=== PATIENT | male | born 1985 | race Caucasian/White ===

== ENCOUNTER 2019-12-24 01:08 | Inpatient (IN) | payer OTHER ==
[~2019-12-24] VITALS: Ht 172.7 cm; Wt 82.5 kg
[2019-12-24] MEDS ORDERED: METO1TAB87 PO (01:17)
[2019-12-24] MEDS ORDERED: MULTIVITAMIN -ADULT INJECTION 10 ML, THIAMINE INJection 100 MG, FOLIC ACID 1 MG in NS 1... IV ONE (01:45)
[2019-12-24] MEDS ORDERED: NS 1,000 ML IV ONE ×2 (01:45→07:30)
[2019-12-24 01:58] LABS: BASO # 0.1 10^3/uL (0.0-0.2); BASO % 0.6 % (0.0-1.0); EOS # 0.1 10^3/uL (0.0-0.5); EOS % 1.1 % (0.0-3.0); HEMATOCRIT 44.1 % (42.0-52.0); HEMOGLOBIN 15.8 g/dl (13.5-17.5); LYMPH # 3.1 10^3/uL (1.5-5.0); LYMPH % 31.6 % (24.0-44.0); MEAN CORPUSCULAR HEMOGLOBIN 30.5 pg (27.0-33.0); MEAN CORPUSCULAR HGB CONC 35.8 g/dl (32.0-36.5); MEAN CORPUSCULAR VOLUME 85.1 fl (80.0-96.0); MONO # 0.9 10^3/uL (0.0-0.8); MONO % 9.5 % (0.0-5.0); NEUTROPHILS # 5.6 10^3/uL (1.5-8.5); NEUTROPHILS % 56.9 % (36.0-66.0); PLATELET COUNT, AUTOMATED 292 10^3/uL (150-450); RED BLOOD COUNT 5.18 10^6/uL (4.30-6.10); WHITE BLOOD COUNT 9.9 10^3/uL (4.0-10.0)
[2019-12-24] MEDS ORDERED: FLECAINIDE 50MG TABLET PO ONE (02:15)
[2019-12-24] MEDS ORDERED: METOPROLOL TART 25 MG TABLET PO ONE (02:15)
[2019-12-24] MEDS ORDERED: METOPROLOL 5 MG/5 ML VIAL IV STA ×3 (02:27→03:03)
[2019-12-24 02:38] LABS: BLOOD UREA NITROGEN 17 MG/DL (7-18); CARBON DIOXIDE LEVEL 24 MEQ/L (21-32); CHLORIDE LEVEL 108 MEQ/L (98-107); CK-MB VALUE MASS 1.5 NG/ML (<3.6); CPK CREATINE PHOSPHOKINASE 187 U/L (39-308); CREATININE FOR GFR 1.04 MG/DL (0.70-1.30); ETHYL ALCOHOL (ETHANOL) 0.187 % (0.000-0.010); FREE THYROXINE INDEX 3.8 % (1.4-3.8); GLOMERULAR FILTRATION RATE > 60.0 (>60); GLUCOSE, FASTING 88 MG/DL (70-100); POTASSIUM SERUM 3.6 MEQ/L (3.5-5.1); SODIUM LEVEL 139 MEQ/L (136-145); T UPTAKE 36 % (33-40); THYROXINE (T4) 10.5 UG/DL (4.5-12.0); TROPONIN I < 0.02 NG/ML (< 0.10)
[2019-12-24] MEDS ORDERED: METOPROLOL TART 50 MG TAB PO ONE (02:45)
[2019-12-24] MEDS ORDERED: AMIODARONE 200 MG TAB (PACERONE) PO ONE (03:30)
[2019-12-24] MEDS ORDERED: AMIODARONE HCL 150 MG in IV 1 EA IV STA (04:50)
--- NOTE | 2019-12-24 05:12 | HPEPDOC ---
[facility] Medical History & Physical Date of Admission Dec 24, 2019 Date of Service: Dec 24, 2019 Other Provider [facility] Attending Physician: PATRICIO ARDON MD History and Physical TIME OF SERVICE: 530AM CHIEF COMPLAINT: palpitations HISTORY OF PRESENT ILLNESS: This is a 34 yr old male who came in this morning for evaluation of palpitations. He has a hx of palpitations (a fib) when he drinks; he denies being ever having an Echo. He admits to binge drinking lately because of boredom and stress related to the COVID pandemic; he can't quantify how much he drank. He denied having chest pain, dyspnea, runny nose, cough or cold or any sick contacts. He has a cut on his forehead which occurred as a result of his roommate accidentally hitting him with a medicine ball while they were exercising. Per d/w his alcohol level elevated, EKG confirmed rapid afib which resolved after metoprolol tartrate 50mg x1, metoprolol tartrate 5mg IV x2, amiodarone 600mg PO and amiodarone 150mg IV x1. 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 HOME MEDICATIONS: Please see below. PHYSICAL EXAMINATION: Vital Signs Date Time Temp Pulse Resp B/P (MAP) Pulse Ox O2 Delivery O2 Flow Rate FiO2 12/24/19 01:08 98.2 102 18 129/81 (97) 96 Room Air GEN: well-nourished / well developed/ slightly anxious INTEGUMENT: He has an abrasion on his forehead HEENT: NCAT / lips acyanotic /mucus membranes moist and pink CVS: HR irregularly irregular & 89 at time of exam /NMRG/ no JVP / radial and dorsalis pedis pulses intact / no lower extremity edema LUNGS: lungs are clear to auscultation bilaterally on room air ABDOMEN: Contour (flat) / there are no masses or lesions MSK/EXTREMITIES: range of motion intact in all 4 extremities NEURO: CN 2-12 are grossly intact / speech is not dysarthric PSYCH: alert and oriented to person place and time/ able to understand and follow all commands LABORATORY DATA: Anion Gap 7L, Glomerular Filtration Rate > 60.0, Calcium Level 9.0, Total Creatine Kinase 187, Creatine Kinase MB 1.5, Creatine Kinase MB Relative Index 0.80, Troponin I < 0.02, Thyroid Stimulating Hormone (TSH) 2.630, Free Thyroxine Index 3.8, Thyroxine (T4) 10.5, Triiodothyronine (T3) Uptake 36, Ethyl Alcohol Level 0.187H ASSESSMENT: Mr. Patrick a 34-year-old with history of chronic hypertension and paroxysmal atrial fibrillation who is admitted for management of rapid A. fib likely due to binge drinking. PLAN: 1. Rapid Atrial Fibrillation likely 2/2 alcohol abuse RVR resolved after he received PO and IV metoprolol tartrate and PO and IV amiodarone His serum Trop, TSH, K, Mg, Ca++ are wnl Serum ETO elevated Pre -echo CHADS VASC2 Score to determine risk of stroke = 1 point = consider AC Plan: admit to PCU / telemetry / f/u Mag and serial trops / pending Echo to determine EF and r/o valvulopathy f/u repeat CHADSVASC2 score and decide if AC can be discontinued / rate control w metoprolol tartrate 25mg Q12H (home dose is metoprolol tartrate 25mg daily), the day time team may consider calling the [employer] 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 Alcohol Abuse - Plan: fall precautions/ seizure precautions/ ativan per CIWA protocol w MVI, thiamine and folic acid / instructed patient to abstain from alcohol 3. Chronic HTN - Plan: metoprolol tartrate 25mg Q12H 4. Abrasion on forehead- Plan: bacitracin ointment DVT Px not needed bc he is on AC for A.fib DISPO: likely home after more than 2 midnight's stay Home Medications Scheduled Metoprolol Tartrate (Metoprolol Tartrate) 25 Mg Tablet, 25 MG PO DAILY Allergies Coded Allergies: No Known Allergies (Unverified , 12/24/19) A-FIB/CHADSVASC A-FIB History Current/History of A-Fib/PAF?: Yes Current PO Anticoag Therapy: No Treatment Treatment ordered: Other Other anticoagulant ordered: PATRICIO Posey MD Dec 24, 2019 05:12
[2019-12-24] MEDS ORDERED: LORazepam 2 MG TAB PO PRN (05:15)
[2019-12-24] MEDS ORDERED: ACETAMINOPHEN TAB 650MG DOSE (2X325MG) PO PRN (05:15)
[2019-12-24] MEDS ORDERED: METOPROLOL TART 25 MG TABLET PO SCH ×2 (06:00→09:00)
[2019-12-24 06:10] VITALS: BP 127/80
[2019-12-24] MEDS: ENOXAPARIN 80 MG/0.8 ML SYRINGE (J1650) SC SCH ×2 (06:25→17:57)
[2019-12-24] MEDS ORDERED: METOPROLOL TART 25 MG TABLET PO PRN (06:45)
[2019-12-24] MEDS ORDERED: BACITRACIN OINTMENT 30GM TUBE TOP PRN (07:00)
[2019-12-24 07:05] LABS: MAGNESIUM LEVEL 1.7 MG/DL (1.8-2.4); PHOSPHORUS LEVEL 3.3 MG/DL (2.5-4.9)
[2019-12-24] MEDS: THIAMINE 100 MG TAB PO SCH ×2 (07:49→21:36)
[2019-12-24] MEDS: MULTIVITAMINS/MINERALS THERAP 1 TAB PO SCH (07:49)
[2019-12-24] MEDS: DOCUSATE SODIUM 100 MG CAP PO SCH ×2 (07:50→21:00)
[2019-12-24] MEDS: FOLIC ACID 1 MG TAB PO SCH (07:50)
[2019-12-24 08:00] VITALS: BP 140/82
[2019-12-24] MEDS ORDERED: atenoloL 50 MG TAB PO ONE (08:00)
[2019-12-24] MEDS ORDERED: AMIODARONE 150MG/3ML INJ (J0282) IVP STA (08:28)
[2019-12-24] MEDS ORDERED: MAG SULF 1GM/100ML (MAG RUN) 1 GM in IV 1 EA IV ONE (08:30)
[2019-12-24 08:33] LABS: CREATININE FOR GFR 0.97 MG/DL (0.70-1.30); GLOMERULAR FILTRATION RATE > 60.0 (>60); TROPONIN I < 0.02 NG/ML (< 0.10)
--- NOTE | 2019-12-24 08:34 | ECGEPIP ---
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
--- NOTE | 2019-12-24 08:36 | ECGEPIP ---
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
--- NOTE | 2019-12-24 08:45 | IPN ---
DATE OF SERVICE: 12/24/2019 The patient continues to complain of palpitations. Rate has been 118 to 131. Given IV amiodarone and flecainide. Currently on metoprolol. Blood pressure is maintained at 140 systolic. No cough, fever or chills overnight. No dizziness or lightheadedness. Temperature 96.5, pulse 131, respiratory rate 18, blood pressure 140/82, 98% on room air. Generally, the patient is awake, alert and oriented times three. He has an abrasion on the right forehead. Dry mucous membranes. No jugular venous distention (JVD). No thyromegaly. Lungs are clear to auscultation. No wheezing or rales. Heart: S1, S2. Irregularly irregular. Tachycardic. No murmurs, rubs or gallops noted. Abdomen: Soft. Nontender. Nondistended. Extremities: No pitting edema. Patient has multiple tattoos bilateral upper and lower extremities. LABORATORY DATA: 12/24/2019: White count 9.9, hemoglobin 15, hematocrit 44, platelet count 292. Sodium 139, potassium 3.6, chloride 108, bicarbonate 24, BUN 17, creatinine 1.04, glucose 88, calcium 9. Magnesium 1.7. Total CK 187. MB fraction 1.5. Troponin less than 0.02. TSH 2.63. ASSESSMENT AND PLAN: This is a 34-year-old male with history of hypertension for the past two years with paroxysmal atrial fibrillation when he drinks alcohol who had had an alcoholic binge because of stress from the COVID pandemic who presented with atrial fibrillation with rapid ventricular response (RVR) status post amiodarone and currently with uncontrolled rate on atenolol 100 daily. IMPRESSION: 1. Atrial fibrillation with rapid ventricular rate. The patient has had an alcoholic binge. His CHADSVASc score is 1. 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 He is currently on atenolol 100 mg daily as well as a fluid bolus of normal saline. Adjust dose accordingly for better rate control. May consider amiodarone if the blood pressure were to decrease to a mean arterial pressure less than 65. 2. Hypomagnesemia. Supplemented. 3. Hypertension on atenolol. 4. Alcohol abuse. Patient has been instructed about alcohol cessation as outpatient. Currently multivitamin, thiamine and folic acid. MTDD
[2019-12-24] MEDS ORDERED: AMIODARONE HCL 150 MG in IV 1 EA IV ONE (09:00)
[2019-12-24] MEDS: MAGNESIUM OXIDE 400 MG TAB (MAG-OX) PO SCH (09:09)
[2019-12-24] MEDS: POTASSIUM CHLORIDE 10 MEQ SR TABLET PO SCH (09:09)
[2019-12-24 12:00] VITALS: BP 121/75
[2019-12-24] MEDS ORDERED: METOPROLOL TART 50 MG TAB PO SCH (12:00)
[2019-12-24 16:00] VITALS: BP 142/94
[2019-12-24 20:00] VITALS: BP 135/78
[2019-12-24 22:00] VITALS: BP 135/78
[2019-12-25] VITALS: BP 112/63
[2019-12-25 04:00] VITALS: BP 113/64
[2019-12-25] MEDS: ENOXAPARIN 80 MG/0.8 ML SYRINGE (J1650) SC SCH (05:20)
[2019-12-25 05:59] LABS: HEMATOCRIT 51.3 % (42.0-52.0); MEAN CORPUSCULAR HEMOGLOBIN 30.2 pg (27.0-33.0); MEAN CORPUSCULAR HGB CONC 35.1 g/dl (32.0-36.5); MEAN CORPUSCULAR VOLUME 86.1 fl (80.0-96.0); PLATELET COUNT, AUTOMATED 332 10^3/uL (150-450); RED BLOOD COUNT 5.96 10^6/uL (4.30-6.10); WHITE BLOOD COUNT 8.7 10^3/uL (4.0-10.0)
[2019-12-25 06:16] LABS: BLOOD UREA NITROGEN 17 MG/DL (7-18); CALCIUM LEVEL 9.5 MG/DL (8.5-10.1); CARBON DIOXIDE LEVEL 30 MEQ/L (21-32); CHLORIDE LEVEL 104 MEQ/L (98-107); CREATININE FOR GFR 1.13 MG/DL (0.70-1.30); GLOMERULAR FILTRATION RATE > 60.0 (>60); GLUCOSE, FASTING 91 MG/DL (70-100); MAGNESIUM LEVEL 2.3 MG/DL (1.8-2.4); POTASSIUM SERUM 4.2 MEQ/L (3.5-5.1); SODIUM LEVEL 136 MEQ/L (136-145)
[2019-12-25] MEDS ORDERED: ATEN100T PO (07:17)
[2019-12-25] MEDS ORDERED: SELF1KIT MC (07:43)
[2019-12-25 08:00] VITALS: BP 121/72
[2019-12-25] MEDS: DOCUSATE SODIUM 100 MG CAP PO SCH (09:00)
[2019-12-25] MEDS ORDERED: atenoloL 50 MG TAB PO SCH (09:00)
[2019-12-25] MEDS: MAGNESIUM OXIDE 400 MG TAB (MAG-OX) PO SCH (09:50)
[2019-12-25 09:51] VITALS: BP 121/72
[2019-12-25] MEDS: MULTIVITAMINS/MINERALS THERAP 1 TAB PO SCH (09:51)
[2019-12-25] MEDS: THIAMINE 100 MG TAB PO SCH (09:51)
[2019-12-25] MEDS: FOLIC ACID 1 MG TAB PO SCH (09:51)
[2019-12-25] MEDS: POTASSIUM CHLORIDE 10 MEQ SR TABLET PO SCH (09:51)
--- NOTE | 2019-12-25 11:10 | ECHO ---
DATE OF PROCEDURE: 12/25/2019 REFERRING PHYSICIAN: Dr. Kulkarni INDICATION: Atrial fibrillation with rapid ventricular response. Height is 173 cm. Weight is 83 kg. DIMENSIONS: IVS 1.1 LV 4.9 LVPW 1.1 LA 3.2 Aorta 2.7 RV 2.5 IVC 1.2 Mitral E wave velocity 59, A-wave 38, E prime septal 10.8, E prime lateral 10.8. FINDINGS: The study is of acceptable technical quality even though visualization, especially of the left ventricle was somewhat limited. The patient is in sinus rhythm. Left ventricle is normal size and systolic function with estimated EF around 65%. Due to some limitations of the imaging, small wall motion abnormalities could have been missed but they seem unlikely. Right ventricle appears normal size and systolic function. Both atria appear normal. All four valves were reasonably well seen and appear normal. No pericardial effusion is noted. Inferior vena cava is normal size. Aortic root, aortic arch and visualized segment of abdominal aorta all appear normal. Doppler interrogation reveals no significant aortic disease. There is trace mitral and tricuspid insufficiency. Mitral inflow pattern and tissue Doppler imaging of mitral annulus reveal normal diastolic function. CONCLUSIONS: 1. Study is of acceptable technical quality, the patient is in sinus rhythm. 2. Normal LV size, systolic and diastolic function. 3. No significant valvular disease. 4. Normal central venous pressure. 5. Essentially normal echocardiogram. COMMENTS: SBE prophylaxis is not recommended. MTDD
--- NOTE | 2019-12-25 20:54 | DSES ---
DATE OF ADMISSION: 12/24/2019 DATE OF DISCHARGE: 12/25/2019 PRIMARY DISCHARGE DIAGNOSES: 1. Paroxysmal atrial fibrillation with rapid ventricular rate. 2. Hypertension. 3. Alcohol abuse with alcohol binges. 4. Overweight. DISCHARGE MEDICATIONS: - atenolol 100 mg daily DISCHARGE INSTRUCTIONS: The patient is to followup with primary care provider within 5 days of hospital discharge to check his blood pressure and prior to taking atenolol and to hold atenolol for heart rate less than 60 or systolic pressure less than 110 mmHg. Primary care physician is to defer to golf club manager to decide whether the patient is a candidate for cardiac ablation for chronic atrial fibrillation due to risk of internal bleeding, the patient was not placed on oral anticoagulation at this time. 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 HOSPITAL COURSE: This is a 34-year-old male with a history of hypertension for the past 2 years, previously diagnosed with paroxysmal atrial fibrillation and on chronic metoprolol at home. He was in his usual state of health until an alcohol binge because of stress from COVID pandemic and presented with atrial fibrillation with rapid ventricular response, rate of 160 to 130. The patient was given metoprolol intravenously and orally with no improvement and was subsequently given flecainide and amiodarone by the emergency room. He was admitted to the hospitalist service, placed in progressive care unit (PCU) with telemetry with persistent rapid ventricular rate of 120 to 140. The patient was subsequently given atenolol 100 mg daily and one dose of intravenous amiodarone 150 with subsequent improvement with heart rate decreasing down to 62 to 96. The patient's blood pressure was well maintained at 130 systolic after fluid bolus of 1 liter. He currently denies any palpitations, lightheadedness, dizziness, chest pain, pressure, tightness or shortness of breath and is stable for hospital discharge. Echocardiogram had been ordered, result of which is not available at this time. PHYSICAL EXAMINATION: On discharge, temperature 97.8, pulse 59, respiratory rate 16, blood pressure 113/64, 100% on room air. GENERAL: Awake, alert, oriented times three. Answering questions appropriately. HEENT: Anicteric sclerae. Face is symmetric. No jaundice. Moist mucous membranes. No jugular venous distention (JVD). No thyromegaly or cervical lymphadenopathy. LUNGS: Clear to auscultation with no wheezing, rales or rhonchi. HEART: S1, S2. Sinus rhythm. ABDOMEN: Soft, nontender, nondistended. Positive bowel sounds. EXTREMITIES: No cyanosis, clubbing or pitting edema. LABORATORY DATA: White count 8.7, hemoglobin 18, hematocrit 51, platelet count 332. Sodium 136, potassium 4.2, chloride 104, bicarbonate 30, BUN 70, creatinine 1.13, glucose 91, troponin less than 0.02, TSH 2.63, Free T4 3.8. Time spent on discharge: 30 minutes. MTDD
== END 2019-12-25 10:10 | disposition home or self-care (01) | DRG 309 ==
LOC: M ED 01:08 → M ED INP 05:27 → ENRESERV 05:28 → M PCU 06:10
PROVIDERS: ADMIT Internal Medicine; ATTEND Internal Medicine
DX: I48.0 Paroxysmal atrial fibrillation (principal); F10.188 Alcohol abuse with other alcohol-induced disorder; S00.91XA Abrasion of unspecified part of head, initial encounter; W21.00XA Struck by hit or thrown ball, unspecified type, initial encounter; Y92.133 Barracks on military base as the place of occurrence of the external cause; I10 Essential (primary) hypertension; Z79.899 Other long term (current) drug therapy; Z73.3 Stress, not elsewhere classified; E83.42 Hypomagnesemia

== ENCOUNTER 2020-07-09 12:18 | Emergency (ER) | payer OTHER ==
[~2020-07-09] VITALS: Ht 172.7 cm; Wt 85.5 kg
[~2020-07-09 12:18] MED LIST: ATEN100T PO; METO1TAB87 PO; SELF1KIT MC
[2020-07-09] MEDS ORDERED: DILT180C28 PO (12:26)
[2020-07-09 13:24] LABS: ETHYL ALCOHOL (ETHANOL) < 0.003 % (0.000-0.010); MAGNESIUM LEVEL 2.1 MG/DL (1.8-2.4)
[2020-07-09 13:30] VITALS: BP 132/74
--- NOTE | 2020-07-10 08:14 | ECGEPIP ---
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
== END 2020-07-09 13:49 | disposition home or self-care (01) ==
LOC: M ED 12:18
DX: I49.3 Ventricular premature depolarization (principal); I48.91 Unspecified atrial fibrillation; F10.10 Alcohol abuse, uncomplicated
CPT/HCPCS: 80047; 83735; 93005; 99284; G0480

== ENCOUNTER 2020-09-24 20:54 | Emergency (ER) | payer OTHER ==
[~2020-09-24] VITALS: Ht 172.7 cm; Wt 85.6 kg
[~2020-09-24 20:54] MED LIST changes: +DILT180C28 PO
[2020-09-24 21:58] LABS: BASO % 0.6 % (0.0-1.0); EOS # 0.1 10^3/uL (0.0-0.5); EOS % 2.4 % (0.0-3.0); HEMATOCRIT 48.7 % (42.0-52.0); HEMOGLOBIN 16.6 g/dl (13.5-17.5); LYMPH # 1.6 10^3/uL (1.5-5.0); LYMPH % 31.7 % (24.0-44.0); MEAN CORPUSCULAR HEMOGLOBIN 28.5 pg (27.0-33.0); MEAN CORPUSCULAR HGB CONC 34.1 g/dl (32.0-36.5); MEAN CORPUSCULAR VOLUME 83.5 fl (80.0-96.0); MONO # 0.3 10^3/uL (0.0-0.8); NEUTROPHILS % 59.7 % (36.0-66.0); PLATELET COUNT, AUTOMATED 253 10^3/uL (150-450); RED BLOOD COUNT 5.83 10^6/uL (4.30-6.10)
[2020-09-24 22:21] LABS: AMPHETAMINES LEVEL URINE NEGATIVE (NEGATIVE); BARBITURATES URINE NEGATIVE (NEGATIVE); BENZODIAZEPINES URINE NEGATIVE (NEGATIVE); CANNABINOIDS URINE NEGATIVE (NEGATIVE); COCAINE METABOLITE URINE NEGATIVE (NEGATIVE); METHADONE URINE NEGATIVE (NEGATIVE); OPIATES URINE NEGATIVE (NEGATIVE); PHENCYCLIDINE URINE NEGATIVE (NEGATIVE)
[2020-09-24 22:34] LABS: RSV AMPLIFICATION NEGATIVE (NEGATIVE)
[2020-09-24 22:37] LABS: ALBUMIN 4.5 GM/DL (3.2-5.2); ALT/SGPT 38 U/L (12-78); BILIRUBIN,DIRECT 0.1 MG/DL (0.0-0.2); BILIRUBIN,TOTAL 0.4 MG/DL (0.2-1.0); BLOOD UREA NITROGEN 11 MG/DL (7-18); CARBON DIOXIDE LEVEL 28 MEQ/L (21-32); CHLORIDE LEVEL 101 MEQ/L (98-107); CK-MB VALUE MASS 1.2 NG/ML (<3.6); CPK CREATINE PHOSPHOKINASE 76 U/L (39-308); CREATININE FOR GFR 0.97 MG/DL (0.70-1.30); ETHYL ALCOHOL (ETHANOL) 0.162 % (0.000-0.010); FREE T4 1.29 NG/DL (0.76-1.46); GLOMERULAR FILTRATION RATE > 60.0 (>60); GLUCOSE, FASTING 115 MG/DL (70-100); LIPASE 153 U/L (73-393); MB/CK RELATIVE INDEX 1.58 (< OR =4); NT-PRO BNP 17 PG/ML (<125); POTASSIUM SERUM 3.2 MEQ/L (3.5-5.1); SODIUM LEVEL 135 MEQ/L (136-145); TOTAL PROTEIN 7.8 GM/DL (6.4-8.2); TROPONIN I < 0.02 NG/ML (< 0.10)
--- NOTE | 2020-09-24 23:10 | REPVR ---
PROCEDURE INFORMATION: Exam: XR Chest, 1 View Exam date and time: 09/24/2020 10:10 PM Age: 35 years old Clinical indication: Chest pain; Type not specified TECHNIQUE: Imaging protocol: XR of the chest Views: 1 view. COMPARISON: No relevant prior studies available. FINDINGS: Lungs: Unremarkable. No consolidation. Pleural space: Unremarkable. No pleural effusion. No pneumothorax. Heart/Mediastinum: Unremarkable. No cardiomegaly. Bones/joints: Unremarkable. IMPRESSION: No acute radiographic findings. Electronically signed by: Logan Tay On 09/24/2020 23:11:07 PM
[2020-09-24] MEDS ORDERED: POTASSIUM CHLORIDE 10 MEQ SR TABLET PO ONE (23:45)
[2020-09-25] VITALS: BP 145/75
--- NOTE | 2020-09-25 06:37 | ECGEPIP ---
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
== END 2020-09-25 00:48 | disposition home or self-care (01) ==
LOC: M ED 20:54
DX: U07.1 COVID-19 (principal); R00.2 Palpitations; I10 Essential (primary) hypertension; I48.91 Unspecified atrial fibrillation; Z79.899 Other long term (current) drug therapy
CPT/HCPCS: 71045; 80048; 80076; 80307; 82550; 82553; 83690; 83735; 83880; 84439; 84443; 84484; 85025; 87631; 93005; 93041; 94760; 99285; G0480

== ENCOUNTER → 2021-01-01 | Outpatient (CLI) | payer OTHER ==
--- NOTE | 2021-01-02 17:10 | SLEEPHOME ---
DATE: 01/01/2021 ORDERED BY: Nu Landis, Cardiology Diagnostic home sleep testing was performed due to concern for the obstructive sleep apnea syndrome. For testing, a nocturnal T3 respiratory monitoring device was used. Continuous record was made of pulse, oxygen saturation, air flow, chest and abdominal strain, and body position. There was 9 hours and 59 minutes of data reviewed. There was 7 hours and 13 minutes marked as time in bed. During the interval marked time in bed, there were 48 respiratory events identified of 10 seconds in duration or greater for a respiratory event index of 6.6. The events were primarily obstructive and most frequent in the supine position. Baseline pulse rate 58. Pulse rate ranged 46-91. Baseline saturation 95%. Saturations fell only to 91%, and testing was performed in both the supine and nonsupine positions. IMPRESSION: Abnormal home sleep testing with repetitive respiratory events and oxygen desaturations to 91% with a respiratory event index of 6.6 is consistent with mild positional obstructive sleep apnea syndrome. RECOMMENDATION: As the events were associated primarily with the supine posture, sleep positioning retraining for the avoidance of the supine posture are recommended. If symptoms persist, formal sleep evaluation would be reasonable.
== END ==
LOC: M SLEEP HO 08:52
PROVIDERS: ATTEND Physician Assistant
DX: G47.9 Sleep disorder, unspecified (principal)